=== PATIENT | male | born 1995 | race Caucasian/White ===

== ENCOUNTER 2016-10-16 11:31 | Emergency (ER) | payer OTHER, BC ==
[~2016-10-16] VITALS: Ht 175.3 cm; Wt 64.0 kg
[2016-10-16 11:39] VITALS: TEMP 36.5; Ht 175.3 cm; Wt 64.0 kg
[2016-10-16] MEDS ORDERED: HYDROmorphone INJ 0.5 MG/0.5 ML SYR IV STA (12:15)
[2016-10-16] MEDS ORDERED: SODIUM CHLORIDE 0.9% 500ML 500 ML IV STA (12:15)
[2016-10-16] MEDS ORDERED: ONDANSETRON INJ 2 MG/ML 2 ML VIAL IV STA (12:15)
[2016-10-16 12:22] LABS: BASO % 0.3 %; BASO ABS # 0.02 K/uL (0-0.2); COMPLETE YES; EOS % 0.4 %; HEMATOCRIT 46.7 % (42-52); IG% 0.1 %; LYMPH % 22.9 %; LYMPH ABS # 1.75 K/uL (1.2-3.4); MEAN CELL VOLUME 96.7 fL (80-100); MEAN CORPUSCULAR HEMOGLOBIN 32.5 pg (25-34); MEAN CORPUSCULAR HGB CONC 33.6 g/dl (32-36); MEAN PLATELET VOLUME 9.8 fL (7.4-10.4); MONO % 4.6 %; NEUT % 71.7 %; PLATELET COUNT 225 K/uL (130-400); RED BLOOD COUNT 4.83 M/uL (4.7-6.1); WHITE BLOOD COUNT 7.64 K/uL (4.8-10.8)
[2016-10-16 12:27] LABS: URINE APPEARANCE TURBID (CLEAR); URINE BILIRUBIN NEG (NEG); URINE COLOR DK YELLOW; URINE EPITHELIAL CELL AUTO 20-30 /lpf (0-5); URINE NITRITE NEG (NEG); URINE SPECIFIC GRAVITY 1.031 (1.000-1.030); UROBILINOGEN NEG (NEG); ZZUR CULT IF INDIC CLEAN CATCH NO
[2016-10-16 12:30] LABS: MANUAL MICROSCOPIC REQUIRED? NO; REVIEW REQ? NO
[2016-10-16 12:42] LABS: BUN/CREATININE RATIO 13.2 (10-20); CALCIUM 8.9 mg/dl (8.5-10.1); CREATININE 0.97 mg/dl (0.60-1.40); POTASSIUM 4.1 mmol/L (3.5-5.1)
[2016-10-16] MEDS ORDERED: OPTIRAY 320 IV PRN (15:30)
--- NOTE | 2016-10-16 15:31 | DIAGNOSTIC IMAGING REPORT ---
ABD/PELVIS IV AND ORAL CONT HISTORY: 21 years-old Male acute diffuse lower abdominal pain. COMPARISON: None available TECHNIQUE: Multiple axial CT images of the abdomen and pelvis were obtained following the intravenous administration of 92 mL Optiray 320. Oral contrast was also used. A dose lowering technique was used consistent with the principals of KIARA. FINDINGS: The lung bases are generally clear. No pneumoperitoneum identified. Imaged inferior cardiac chambers are unremarkable. Pectus excavatum deformity of the chest is noted. The liver, gallbladder, spleen, pancreas and adrenal glands are within normal limits. Bilateral kidneys, urinary bladder and prostate are within normal limits. Abdominal aorta is normal in course and caliber. No bulky retroperitoneal adenopathy. There is gaseous dilation of the distal esophagus. There is no bowel obstruction. The appendix is not definitively seen, however there are no secondary signs of acute appendicitis. Soft tissues are unremarkable. Bones appear intact. IMPRESSION: 1. No acute intra-abdominal or intrapelvic abnormality identified. No bowel obstruction. 2. Appendix not definitively seen, however no secondary signs of acute appendicitis. The above report was generated using voice recognition software. It may contain grammatical, syntax or spelling errors. Electronically signed by: Woodrow Del Valle M.D. 10/16/2016 3:30 PM Dictated Date/Time: 10/16/2016 3:23 PM
[2016-10-16 16:30] VITALS: BP 117/65; PULSE 65; O2SAT 99
--- NOTE | 2016-10-16 17:34 | EMERGENCY ROOM VISIT NOTE ---
History Report prepared by Dexter: Elidia Gay Under the Supervision of: Dr. Gabriel Coffman D.O. First contact with patient: 12:06 Chief Complaint: ABDOMINAL PAIN Stated Complaint: LOWER ABD PAIN - SENT BY [facility] Nursing Triage Summary: Mid abdominal pain since this am. Also c/o nausea. History of Present Illness The patient is a 21 year old male who presents to the Emergency Room with complaints of constant abdominal pain beginning this morning. The patients states that he woke up at 8am with central abdominal pain. He is also experiencing nausea. He feels better sitting down or hunched over, but states that standing up straight exacerbates his pain. He has never had pain like this before. The patient rates his pain as a 5/10 in severity. Pt denies headache, fevers, chest pain, shortness of breath, vomiting, diarrhea, testicular pain, pain with urination, and melena. He had a normal bowel movement this morning. He denies any previous abdominal surgeries or changes to his medications. The patient was sent to the ED by [facility] for further evaluation. Source of History: patient Onset: this morning Position: abdomen (central) Symptom Intensity: 5/10 Timing: constant Modifying Factors (Worsening): other (sitting down/hunched over) Modifying Factors (Relieving): other (standing up) Associated Symptoms: + nausea, No fevers, No headache, No chest pain, No SOB , No vomiting, No melena, No diarrhea, No urinary symptoms Note: Pt denies testicular pain Review of Systems See HPI for pertinent positives & negatives. A total of 10 systems reviewed and were otherwise negative. Past Medical & Surgical Medical Problems: (1) No significant active problems Family History No pertinent history stated. Social History Smoking Status: Never Smoker Occupation Status: [employer] student Current/Historical Medications No Active Prescriptions or Reported Meds Allergies Coded Allergies: No Known Allergies (Unverified , 10/16/16) Physical Exam Vital Signs Date Time Temp Pulse Resp B/P (MAP) Pulse Ox O2 Delivery O2 Flow Rate FiO2 10/16/16 16:30 65 16 117/65 99 Room Air 10/16/16 15:07 68 16 118/68 98 Room Air 10/16/16 13:37 51 16 121/78 100 10/16/16 11:39 36.5 50 18 136/84 99 Room Air Physical Exam GENERAL: alert, sitting up in bed, well appearing, well nourished, no distress, non-toxic EYE EXAM: normal conjunctiva, PERRL and EOM's grossly intact OROPHARYNX: no exudate, no erythema, lips, buccal mucosa, and tongue normal and mucous membranes are moist NECK: supple, no nuchal rigidity, no adenopathy, non-tender LUNGS: Clear to auscultation. Normal chest wall mechanics HEART: no murmurs, S1 normal and S2 normal ABDOMEN: abdomen soft, tender to palpation in the RLQ, normo-active bowel sounds , no masses, no rebound or guarding. BACK: Back is symmetrical on inspection and there is no deformity, no midline tenderness, no CVA tenderness. SKIN: no rashes and no bruising UPPER EXTREMITIES: upper extremities are grossly normal. LOWER EXTREMITIES: No pitting edema. NEURO EXAM: Normal sensorium, cranial nerves II-XII grossly intact, normal speech, no gross weakness of arms, no gross weakness of legs. Medical Decision & Procedures ER Provider Diagnostic Interpretation: Radiology results as stated below per my review and the radiologist's interpretation: ABD/PELVIS IV AND ORAL CONT HISTORY: 21 years-old Male acute diffuse lower abdominal pain. COMPARISON: None available TECHNIQUE: Multiple axial CT images of the abdomen and pelvis were obtained following the intravenous administration of 92 mL Optiray 320. Oral contrast was also used. A dose lowering technique was used consistent with the principals of ALARA. FINDINGS: The lung bases are generally clear. No pneumoperitoneum identified. Imaged inferior cardiac chambers are unremarkable. Pectus excavatum deformity of the chest is noted. The liver, gallbladder, spleen, pancreas and adrenal glands are within normal limits. Bilateral kidneys, urinary bladder and prostate are within normal limits. Abdominal aorta is normal in course and caliber. No bulky retroperitoneal adenopathy. There is gaseous dilation of the distal esophagus. There is no bowel obstruction. The appendix is not definitively seen, however there are no secondary signs of acute appendicitis. Soft tissues are unremarkable. Bones appear intact. IMPRESSION: 1. No acute intra-abdominal or intrapelvic abnormality identified. No bowel obstruction. 2. Appendix not definitively seen, however no secondary signs of acute appendicitis. The above report was generated using voice recognition software. It may contain grammatical, syntax or spelling errors. Electronically signed by: Woodrow Del Valle M.D. 10/16/2016 3:30 PM Dictated Date/Time: 10/16/2016 3:23 PM Laboratory Results 10/16/16 12:12 Red Blood Count 4.83, Mean Corpuscular Volume 96.7, Mean Corpuscular Hemoglobin 32.5, Mean Corpuscular Hemoglobin Concent 33.6, Mean Platelet Volume 9.8, Neutrophils (%) (Auto) 71.7, Lymphocytes (%) (Auto) 22.9, Monocytes (%) (Auto) 4.6, Eosinophils (%) (Auto) 0.4, Basophils (%) (Auto) 0.3, Neutrophils # (Auto) 5.48, Lymphocytes # (Auto) 1.75, Monocytes # (Auto) 0.35, Eosinophils # (Auto) 0.03, Basophils # (Auto) 0.02 10/16/16 12:12 Test 10/16/16 12:12 White Blood Count 7.64 K/uL (4.8-10.8) Red Blood Count 4.83 M/uL (4.7-6.1) Hemoglobin 15.7 g/dL (14.0-18.0) Hematocrit 46.7 % (42-52) Mean Corpuscular Volume 96.7 fL (80-100) Mean Corpuscular Hemoglobin 32.5 pg (25-34) Mean Corpuscular Hemoglobin Concent 33.6 g/dl (32-36) Platelet Count 225 K/uL (130-400) Mean Platelet Volume 9.8 fL (7.4-10.4) Neutrophils (%) (Auto) 71.7 % Lymphocytes (%) (Auto) 22.9 % Monocytes (%) (Auto) 4.6 % Eosinophils (%) (Auto) 0.4 % Basophils (%) (Auto) 0.3 % Neutrophils # (Auto) 5.48 K/uL (1.4-6.5) Lymphocytes # (Auto) 1.75 K/uL (1.2-3.4) Monocytes # (Auto) 0.35 K/uL (0.11-0.59) Eosinophils # (Auto) 0.03 K/uL (0-0.5) Basophils # (Auto) 0.02 K/uL (0-0.2) RDW Standard Deviation 45.4 fL (36.4-46.3) RDW Coefficient of Variation 12.8 % (11.5-14.5) Immature Granulocyte % (Auto) 0.1 % Immature Granulocyte # (Auto) 0.01 K/uL (0.00-0.02) Urine Color DK YELLOW Urine Appearance TURBID (CLEAR) Urine pH 6.0 (4.5-7.5) Urine Specific Pinole 1.031 (1.000-1.030) Urine Protein NEG (NEG) Urine Glucose (UA) NEG (NEG) Urine Ketones TRACE (NEG) Urine Occult Blood NEG (NEG) Urine Nitrite NEG (NEG) Urine Bilirubin NEG (NEG) Urine Urobilinogen NEG (NEG) Urine Leukocyte Esterase NEG (NEG) Urine WBC (Auto) 1-5 /hpf (0-5) Urine RBC (Auto) 0-4 /hpf (0-4) Urine Hyaline Casts (Auto) 5-10 /lpf (0-5) Urine Epithelial Cells (Auto) 20-30 /lpf (0-5) Urine Bacteria (Auto) NEG (NEG) Anion Gap 5.0 mmol/L (3-11) Est Creatinine Clear Calc Drug Dose 107.2 ml/min Estimated GFR () 127.0 Estimated GFR (Non- 109.6 BUN/Creatinine Ratio 13.2 (10-20) Calcium Level 8.9 mg/dl (8.5-10.1) Total Bilirubin 1.5 mg/dl (0.2-1) Direct Bilirubin 0.3 mg/dl (0-0.2) Aspartate Amino Transf (AST/SGOT) 18 U/L (15-37) Alanine Aminotransferase (ALT/SGPT) 26 U/L (12-78) Alkaline Phosphatase 70 U/L (45-117) Total Protein 7.7 gm/dl (6.4-8.2) Albumin 3.9 gm/dl (3.4-5.0) Lipase 93 U/L (73-393) Laboratory results per my review. Medications Administered Medications (Trade) Dose Ordered Sig/Milagros Route Start Time Stop Time Status Last Admin Dose Admin Sodium Chloride 500 ml @ 999 mls/hr Q31M STAT IV 10/16/16 12:15 10/16/16 12:45 DC 10/16/16 12:23 999 MLS/HR Ondansetron HCl (Zofran Inj) 4 mg NOW STAT IV 10/16/16 12:15 10/16/16 12:17 DC 10/16/16 12:22 4 MG Hydromorphone HCl (Dilaudid Inj) 0.5 mg NOW STAT IV 10/16/16 12:15 10/16/16 12:17 DC 10/16/16 12:23 0.5 MG ED Course ED COURSE: Vital signs were reviewed and showed bradycardia. The patients medical record was reviewed The above diagnostic studies were performed and reviewed. ED treatments and interventions as stated above. 1206: The patient was evaluated in room C11B. A complete history and physical examination was performed. 1215: Dilaudid 0.5 mg IV, Zofran 4 mg IV, NSS 500 ml @ 999 mls/hr IV 1547: Upon reevaluation, the patient is feeling better and resting comfortably. I discussed my findings with the patient and he understands and agrees with the treatment plan. Based on the patients age, coexisting illnesses, exam and lab findings the decision to treat as an outpatient was made. The patient remained stable while under my care. The patient appeared well at the time of discharge. Medical Decision Differential diagnoses includes but is not limited to gastritis, peptic ulcer disease, GERD, gallbladder disease, pancreatitis, small bowel obstruction, acute coronary syndrome, pericarditis, ischemic bowel, irritable bowel disease, irritable bowel syndrome, appendicitis, diverticulitis, malignancy, hernia, urinary tract infection, torsion, perforation, trauma, infectious. Patient is a 21-year-old male who presents the ER for lower abdominal pain which started earlier today. No fevers. Vitals are unremarkable. Exam is fairly benign. CBC along with BMP, LFTs, bilirubin and UA was negative. CT of the abdomen and pelvis with oral and IV contrast did not visualize the appendix but shows no acute infectious process. Patient was updated regards to his findings was discharged to follow-up with PCP. Any worsening of his symptoms he was instructed to return immediately to the ER as the appendix was not visualized. Discussed with Pt concerning signs and symptoms to watch out for. Pt was instructed to follow up with their PCP and discussed with the patient their option to return to the ED at anytime for persistent or worsening symptoms. The appropriate anticipatory guidance and out-patient management, including indications for return to the emergency department, were explained at length to the patient and understood. Medication Reconcilliation Current Medication List: was personally reviewed by me Blood Pressure Screening Patient's blood pressure: Normal blood pressure Impression Primary Impression: Abdominal pain Scribe Attestation The scribe's documentation has been prepared under my direction and personally reviewed by me in its entirety. I confirm that the note above accurately reflects all work, treatment, procedures, and medical decision making performed by me. Departure Information Dispostion Home / Self-Care Prescriptions No Active Prescriptions or Reported Meds Referrals [facility] (PCP) Forms HOME CARE DOCUMENTATION FORM, IMPORTANT VISIT INFORMATION Patient Instructions Abdominal Pain - [facility], My [facility] Additional Instructions Please follow up with your primary care doctor or if you are a student, [facility] with in the next 24 hours. Any worsening of your symptoms, please return to the ED immediately. This includes any fevers greater than 100.4, worsening pain, persistent nausea, vomiting, unable to eat or drink , or any other concerning signs or symptoms from your standpoint. You were given medications during this visit that will inhibit your ability to drive, operate machinery and work. Please do NOT drive, operate machinery, drink alcohol or work for the next 12hrs. Problem Qualifiers Primary Impression: Abdominal pain Abdominal location: right lower quadrant Qualified Codes: R10.31 - Right lower quadrant pain
== END 2016-10-16 16:32 | disposition home or self-care (01) ==
LOC: C.EDB 11:33 → C.EDC 16:32
DX: R10.31 Right lower quadrant pain (principal)